=== PATIENT | male | born 1990 | race Caucasian/White ===

== ENCOUNTER 2018-11-15 02:31 | Emergency (ER) | payer OTHER ==
[~2018-11-15] VITALS: Ht 188 cm; Wt 125.0 kg
[2018-11-15 02:33] VITALS: BP 138/89
== END 2018-11-15 03:39 | disposition home or self-care (01) ==
LOC: ED 03:36
DX: S90.122A Contusion of left lesser toe(s) without damage to nail, initial encounter (principal); W22.8XXA Striking against or struck by other objects, initial encounter; Y93.89 Activity, other specified; Y92.828 Other wilderness area as the place of occurrence of the external cause; Y99.8 Other external cause status
CPT/HCPCS: 99283